=== PATIENT | female | born 1970 | race Caucasian/White ===

== ENCOUNTER 2023-10-06 23:03 | Emergency (ER) | payer SELFPAY ==
[~2023-10-06] VITALS: Ht 152.4 cm; Wt 105.2 kg
[~2023-10-06 23:03] MED LIST: ADVIL; FENTANYL; IBUPROFEN; MORPHINE; OXYCODONE; VALIUM; VICODIN; VITAMIN
[2023-10-06 23:28] VITALS: BP_SYST 166; PULSE 77; RESP 20; TEMP 98.3; O2SAT 95
[2023-10-07] MEDS ORDERED: FURO-149 PO (01:30)
[2023-10-07] MEDS ORDERED: ALBMDI INH (01:30)
[2023-10-07] MEDS ORDERED: ALBU2.5V7 INH (01:31)
[2023-10-07 01:42] VITALS: BP_SYST 166; PULSE 77; RESP 20; TEMP 98.3; O2SAT 95
== END 2023-10-07 01:42 | disposition home or self-care (01) ==
LOC: SED 23:03
DX: S92.411A Displaced fracture of proximal phalanx of right great toe, initial encounter for closed fracture (principal); J45.909 Unspecified asthma, uncomplicated; N18.9 Chronic kidney disease, unspecified; Z88.2 Allergy status to sulfonamides; Z88.5 Allergy status to narcotic agent; Z88.8 Allergy status to other drugs, medicaments and biological substances; Z79.899 Other long term (current) drug therapy; W23.0XXA Caught, crushed, jammed, or pinched between moving objects, initial encounter; Y93.89 Activity, other specified; Y92.89 Other specified places as the place of occurrence of the external cause; Y99.8 Other external cause status
CPT/HCPCS: 99283